=== PATIENT | female | born 1995 ===

== ENCOUNTER 2025-11-01 21:21 | Inpatient (IN) | payer OTHER ==
[~2025-11-01] VITALS: Ht 149.9 cm; Wt 74.3 kg
[2025-11-01] MEDS ORDERED: Ondansetron 4 MG SoluTab MM PRN (21:50)
[2025-11-01] MEDS ORDERED: Polyethylene Glycol 3350 17 gm PO PRN (21:50)
[2025-11-01] MEDS ORDERED: FLU VACC TS2025-26(6MOS UP)/PF 45 MCG/0.5 ML SYRINGE IM ONE (21:50)
[2025-11-01] MEDS ORDERED: FLU VACC TS2025-26(6MOS UP)/PF 45 MCG/0.5 ML SYRINGE IM SCH (21:50)
[2025-11-01] MEDS ORDERED: Aluminum Hydroxide 320MG/5ML 473 ML PO PRN (21:50)
[2025-11-01] MEDS ORDERED: DiphenhydrAMINE HCl 50 MG/ML 1ML Vial IM PRN ×2 (21:50→22:05)
[2025-11-01] MEDS ORDERED: LORazepam 2 MG/ML 1ML Injection IM PRN (22:00)
[2025-11-01] MEDS ORDERED: Haloperidol Lactate Inj. 5 MG/ML Injection IM PRN (22:05)
[2025-11-01 22:13] VITALS: BP 116/90
[2025-11-01 22:15] VITALS: BP 116/90
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
--- NOTE | 2025-11-02 05:42 | NUR ---
PRN NOTE PATIENT RECEIVED THE FOLLOWING PRN MEDICATIONS DURING SOLAR DESIGNER/INSTALLER: VISTARIL 50MG FOR ANXIETY AT 0244 (MASS=2)
--- NOTE | 2025-11-02 05:42 | NUR ---
END OF SHIFT SUMMARY PATIENT HAS HAD NO ACUTE CHANGES NOTED SINCE ADMISSION. NO SIGNS OF DISTRESS NOTED. SHE RECEIVED THE FOLLOWING PRN MEDICATIONS: VISTARIL 50MG FOR ANXIETY AT 0244 (MASS=2). SHE CONTINUES TO BE MONITORED EVERY 15 MINUTES FOR WELLNESS AND SAFETY AND EVERY 4 HOURS SI SAFETY AND MITIGATION.
[2025-11-02 07:55] VITALS: BP 134/104
[2025-11-02] MEDS ORDERED: Multivitamins 1 Tab PO SCH (09:00)
--- NOTE | 2025-11-02 12:30 | NUR ---
WRONG LAST NAME PT STATES THOMAS IS HER MAIDEN NAME AND THAT HER LEGAL LAST NAME IS HER NAME OF "HONODEL"
[2025-11-02] MEDS ORDERED: Aluminum Hydroxide 320MG/5ML 473 ML PO PRN (12:55)
[2025-11-02] MEDS ORDERED: Polyethylene Glycol 3350 17 gm PO PRN (13:00)
[2025-11-02] MEDS ORDERED: FLU VACC TS2025-26(6MOS UP)/PF 45 MCG/0.5 ML SYRINGE IM ONE (13:00)
[2025-11-02] MEDS ORDERED: Ondansetron 4 MG SoluTab MM PRN (13:05)
--- NOTE | 2025-11-02 18:08 | NUR ---
SHIFT SUMMARY PT WOKE EASILY PRIOR TO BREAKFAST THIS SHIFT AND STATED SHE HAD A GREAT, SOLID NIGHT OF SLEEP. SHE IS ALERT AND ORIENTED WITH GOOD EYE CONTACT AND CLEAR SPEECH WITH NORMAL TONE, PRESENTABLE HYGIENE, HAS BEEN COOPERATIVE IN CARE AND COMPLIANT WITH MEDICAION. PT HAS PARTICIPATED IN MEALS/SNACKS/GROUPS. SHE HAS DENIED SI/HI BUT DOES SPEAK OF HALUCINATIONS THAT CAUSE HER TO FEEL PARANOID. PT HAS RECEIVED Q15 MIN VISUAL SAFETY CHECKS THROUGHOUT THIS SHIFT
[2025-11-02 20:49] VITALS: BP 117/82
--- NOTE | 2025-11-02 22:04 | NUR ---
PT EXPERIENCING PARNOID THOUGHTS RELATED TO , KIDS, AND/OR FATHER BEING . EASILY REORIENTS AND CALMS WITH LISTENING AND REASSURANCE. PT EXPRESSES BEING OVERWHELMED OVER LAST FEW DAYS AND STATES "I HAVEN'T SLEPT IN 5 DAYS AND THAT'S REALLY BAD." SPENT 1:1 TIME WITH PATIENT FOR APPROX 45 MINUTES FOR LISTENING AND DIRECTION. OF NOTE: PT HAS RAISED, BUMPY RED [place] RASH ON BOTH PALMS. NO RASH ON FEET OR OTHER PARTS OF BODY. C/O SEVERE ITCH. NOTED OLD BROKEN AREAS OF SKIN AROUND FINGER TIPS AND KNUCKLES. PT STATES SHE HAS HAD THIS FOR A COUPLE OF WEEKS AND HAS NOT SEEN A DOCTOR FOR IT. WILL REQUEST MEDICAL CONSULT FROM DR. GALVEZ.
--- NOTE | 2025-11-03 00:36 | NUR ---
ASSUMPTION OF CARE ASSUMED CARE OF PATIENT FROM NICHOLAS BALDERAS AT 2340. SHE IS CURRENTLY RESTING QUIETLY IN HER BED. NO SIGNS OF ACUTE DISTRESS NOTED. SHE RECEIVED TO FOLLOWING PRN MEDICATIONS PRIOR IN THE SHIFT: TRAZADONE 50MG FOR SLEEP AT 2114.
--- NOTE | 2025-11-03 04:54 | NUR ---
END OF SHIFT SUMMARY PATIENT HAS SLEPT SINCE THIS DANCE HALL HOST/HOSTESS ASSUMED CARE AT 2345. NO PRN MEDICATIONS WERE UTILIZED. PATIENT DOES NOT SEEM TO BE IN ANY ACUTE DISTRESS. THEY CONTINUES TO BE MONITORED EVERY 15 MINUTES FOR WELLNESS AND SAFETY AND SAFETY AND EVERY 4 HOURS FOR SI SAFETY AND MITIGATION.
[2025-11-03 08:02] VITALS: BP 125/83
[2025-11-03 08:17] LABS: CHOL/HDL RATIO 1.9; Cholesterol 113 mg/dL (50-200); HDL Cholesterol 61 mg/dL (>39); LDL/HDL RATIO 0.7; Low Density Lipoprotein Chol 42 mg/dL (0-110); Triglycerides 51 mg/dL (30-140); Very Low Density Lipoprot Chol 10 mg/dL (6-28)
[2025-11-03] MEDS ORDERED: Multivitamins 1 Tab PO SCH (09:00)
--- NOTE | 2025-11-03 12:32 | NUR ---
NURSE NOTE PT WAS INFORMED THAT HER CALLED AND CANCELLED HIS VISITATION TODAY AND SAID HE WOULD CALL HER DURING PHONE HOURS. SHE BECAME TEARFUL AND TOLD NICHOLAS ROMERO THAT SHE COULD NOT TALK ON THE PHONE D/T SHE DOES NOT WANT TO SPEAK TO A RECORDING BECAUSE SHE DOES NOT TRUST IT. AND SHE JUST KNOWS IT IS A RECORDING. PT IN SENSORY ROOM TO CALM SELF DOWN.
--- NOTE | 2025-11-03 17:27 | NUR ---
SHIFT SUMMARY PT C/O ANXIETY IN THE AM AND SHE WAS GIVEN PRN VISTARIL. SHE RATED IT 4/10, SEE MASS SCORE. SHE WAS COMPLIANT WITH ALL MEDICATIONS AND JOINED THE MILIEU AND GROUPS. SHE BECAME DELUSIONAL AND TEARFUL AFTER HER CANCELED HIS VISITATION. SHE BELIEVED HE WAS BEING IMITATED BY A-I ROBOTS, WHICH ESCELATED TO HE MAY BE AND BEING IMPERSONATED. SHE WAS THEN MEDICATED WITH PRN ZYPREXA. AFTER A CONSULT WITH DR. HITCHCOCK SHE WAS GIVEN A ONE TIME DOSE OF SEROQUEL. SHE THEN REPORTED THAT SHE FEELS IT IS HELPING, BUT C/O IT CAUSING HER TO BE DROWSY. THIS WAS REPORTED BACK TO NALDO. PT HAS NEW SEROQUEL ORDERED. PT WAS CALM IN THE EVENING AND INTERACTING WITH OTHERS WELL IN THE MILIEU. SHE DENIES ANY SI/HI/AVTH THIS SHIFT. PT'S HANDS DID NOT APPEAR TO HAVE A RASH TO THIS RN. IT LOOKS MORE LIKE A BLOCHY DISCOLORATION. SHE DOES HAVE ONE AREA ON HER L THUMB THAT SHE STATES SHE LIKES TO PICK AT. PT STATES THEY HAVE ALWAYS APPEARED LIKE THIS. SHE DENIES ITCHING. NO HOSPITALIST CONSULT WAS PLACED FOR THIS. WILL CONTINUE TO MONITOR FOR CHANGES.
--- NOTE | 2025-11-03 18:35 | NUR ---
NURSE NOTE PT GOT TEARFUL AT DINNER, STATED SHE COULDN'T EAT THE SOY FREE TRAY THAT WAS PROVIDED FOR HER. SHE C/O THE CHICKEN TASTING BAD AND IT WAS DRY. SHE ATE A COUPLE OF BITES OF HER FRUIT. THIS RN OFFERED HER ALTERNATIVES INCLUDING ENSURE AND PT REFUSED. THIS RN HAD A CONVERSATION WITH PT EARLIER IN THE DAY R/T HER LISTED "SOYBEAN" ALLERGY THAT STATES MINIMAL REACTION. PT STATES IT WAS FROM A SCRATCH TEST DONE MANY YEARS AGO AND SHE ISN'T EVEN SURE IF IT IS SOY. OFFERED TO TO REMOVE THE ALLERGY FROM THE LIST D/T SHE HAS BEEN EATING SOY CONTAINING PRODUCTS SINCE ARRIVAL AND DOES NOT HAVE A RASH. PT STATES SHE WILL JUST NOT EAT WHILE HERE. INFORMED TO PT REMOVING THE ALLERGY WOULD BE BETTER THAN HER NOT EATING AND PT AGREED. WILL REPORT TO MONITOR FOR REACTION TO FOOD.
[2025-11-03 20:37] VITALS: BP 124/97
--- NOTE | 2025-11-04 04:25 | NUR ---
SHIFT SUMMARY PT PRESENT IN MILIEU AT START OF SHIFT. DENIES ANY SI, HI, OR AVTH. REPORTS HER MOOD "NOT THE BEST. I ACTED LIKE A TODDLER WHEN I DIDN'T LIKE MY FOOD FOR DINNER." AFFECT IS SAD. CIRCUMSTANTIAL THOUGHT PROCESS. SHE DENIES ANY CURRENT ANXIETY. SHE HAD EVENING SNACK AND ATTENDED WRAP UP GROUP. SHE WAS COMPLIANT WITH MEDS AND WENT TO BED AFTER SNACK. AT APPROXIMATELY 2345 PT WAS HAVING DIFFICULTY SLEEPING AND REQUESTED AND RECEIVED TRAZODONE. PT ALSO REPORTED ABDOMINAL CRAMPING, RATED 4/10 AND REQUESTED AND RECEIVED IBUPROFEN. SHE WENT TO BED FOR A FEW HOURS, BUT HAS BEEN AWAKE ON AND OFF THROUGHOUT THE NIGHT. SHE IS CURRENTLY RESTING QUIETLY IN BED. Q15 MINUTE CHECKS TO CONTINUE PER PT SAFETY.
[2025-11-04 07:27] VITALS: BP 122/99
--- NOTE | 2025-11-04 12:20 | NUR ---
"Spiritual Care Consult | Pt. Request Meet with Pt. in a [facility] consult room. Pt. is pleasant. Facilitate a life review and listen with interest, empathy and a calming presence. pt. responds and engages in the life review and rapport is established. Considered matters of eric and belief. Pt. verbalized some personal concerns about her spouse and children. Prayed with the Pt. Pt. verbalized gratitude for the spiritual care visit."
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
[2025-11-04 19:28] VITALS: BP 131/95
--- NOTE | 2025-11-05 05:06 | NUR ---
PRN NOTE PATIENT RECEIVED THE FOLLOWING PRN MEDICATIONS DURING POCKET SETTER: MELATONIN 3MG FOR SLEEP AT 2310.
--- NOTE | 2025-11-05 05:06 | NUR ---
SHIFT SUMMARY 30 YEAR-OLD FEMALE PRESENTS WELL GROOMED. SHE IS ALERT AND ORIENTED. SHE SPEAKS IN A CLEAR VOICE AND IN AN APPROPRIATE VOLUME. SHE IS ABLE TO MAKE AND KEEP EYE CONTACT DURING CONVERSATIONS. AT THE TIME OF HER ASSESSMENT, SHE DESCRIBED HER MOOD "CALM". SHE ALSO DENIED SI, HI, AND AVTH AT THAT TIME. SHE ATTENDED SNACK AND DAY ROOM. SHE WAS COMPLIANT WITH CARE AND MEDICATION ADMINISTRATION. SHE RECEIVED THE FOLLOWING PRN MEDICATIONS: MELATONIN 3MG FOR SLEEP AT 2310. SHE CONTINUES TO BE MONITORED EVERY 15 MINUTES FOR WELLNESS AND SAFETY.
[2025-11-05 08:31] VITALS: BP 136/97
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
[2025-11-05 19:08] VITALS: BP 141/92
--- NOTE | 2025-11-06 04:49 | NUR ---
SHIFT SUMMARY: PT ALERT AND ORIENTATED X4. COPERATIVE AND MED COMPLIANT. PT IN THE GROUP ROOM WITH OTHERS AND WAS LAUGHING AND TALKING AT THE BEGINNING OF THE SHIFT. PT IS EXCITED TO BE GOING HOME. ASKED IF SHE WOULD LIKE TO STAY LOGER AND SHE SAID "NO I NEED TO GET BACK HOME" PT HAS 2 CHILDREN AND MISSES THEM. PT DENIES TO BE SI, HI AND AVTH. MOOD ISHOPEFUL, CALM AND HAPPY. PT WENT TO GROUP AND HAD SNACK. PARTICIPATED IN THE GROUP ROOM WITH OTHERS IN CONVERSATION AND WAS LAUGHING. PT HAS A "GOOD FRIEND" THAT IS SUPPORTIVE AND SHE CAN TALK TO HER ABOUT THINGS PT HAS SLEPT WELL SINCE GOING TO SLEEP. WILL CONTINUE TO MONITOR Q 15 MINS FOR WELLNESS AND SAFETY.
[2025-11-06 07:13] VITALS: BP 127/82
--- NOTE | 2025-11-06 08:35 | NUR ---
IMPORTANT DISCHARGE INFORMATION PATIENT TO BE DISCHARGD TODAY. [facility]ST[facility] IS COMING TO PICK HER UP AROUND 1PM. THEIR NUMBER IS . SHE WILL BE GOING TO HER NEW ADDRESS: [address] [place] [address]. ALL PARTIES VERBALIZE AN UNDERSTANDING. ENCOURAGE IVY TO ATTEND HER PCP APPOINTMENT ON 11/12/25 AT 11:20AM SHE HAS NOT BEEN SEEN IN 4 YEARS. FOLLOW UP NEEDED WITH [facility] OPEN ACCESS FOLLOW UP WITH GIULIANA DAMIAN (THEY WILL CALL YOU WITH FOLLOW UP APPOINTMENT) PHARMACY: [facility] FAX NUMBER
[2025-11-06] MEDS ORDERED: Seroquel Xr50 MG PO (10:25)
--- NOTE | 2025-11-06 11:06 | NUR ---
SHIFT ASSESSMENT: PT DENIED SI, HI AND AVH. SHE DESCRIBED HER MOOD , "A MIX OF CALM, HAPPY, DETERMINED AND A LITTLE ANXIOUS. HER AFFECT WAS EUTHYMIC. PT'S GOALS ARE: "TO TALK WITH MY AND MAKE A PLAN FOR OUR FAMILY A WHOLE OR NOT. MAKE IT TO AA 1-2 MEETINGS A MONTH." PT ANXIOUS REGARDING, "THE LONG HARD CONVERSATIONS WITH HER ." PT HAS BEEN ACTIVE IN THE PT MILIEU AND IN GROUPS. SHE BECAME TEARFUL AFTER A CONVERSATION WITH HER , "I'M FINE THOUGH EITHER WAY."
--- NOTE | 2025-11-06 13:20 | NUR ---
DISCHARGE NOTE: 12:53 PT WAS DISCHARGED TO HER HOME VIA HER AND THEIR POV. SHE LEFT WITH ALL OF HER BELONGINGS AND HER DISCHARGE INSTRUCTIONS, SHE REPORTED UNDERSTANDING OF THOSE INSTRUCTIONS. PT EXPRESSED READINESS TO GO HOME, "THERE WILL BE LOTS OF LONG HARD CONVERSATIONS...BUT I WILL BE OK NO MATTER WHAT."
== END 2025-11-06 12:53 | disposition home or self-care (01) | DRG 885 ==
LOC: BHU 21:21
PROVIDERS: ADMIT Psychiatry & Neurology Psychiatry
DX: F29 Unspecified psychosis not due to a substance or known physiological condition (principal); Z88.7 Allergy status to serum and vaccine; Z79.899 Other long term (current) drug therapy; Z23 Encounter for immunization
CPT/HCPCS: 36415; 80061; 83036; 96372; A9270; G0008